=== PATIENT | male | born 1995 | race Caucasian/White ===

== ENCOUNTER 2018-09-30 17:57 | Emergency (ER) | payer MEDICAID ==
[~2018-09-30] VITALS: Ht 175.3 cm; Wt 68.2 kg
[2018-09-30 18:15] VITALS: BP 117/78; Ht 175.3 cm; Wt 68.2 kg
[2018-09-30] MEDS ORDERED: AMOXICILLIN500 M1 PO (18:29)
== END 2018-09-30 18:59 | disposition home or self-care (01) ==
LOC: D.ER 17:57
DX: J02.0 Streptococcal pharyngitis (principal)

== ENCOUNTER 2018-10-03 11:56 | Emergency (ER) | payer MEDICAID ==
[~2018-10-03] VITALS: Ht 175.3 cm; Wt 68.2 kg
[~2018-10-03 11:56] MED LIST: AMOXICILLIN500 M1 PO
[2018-10-03 11:59] VITALS: Ht 175.3 cm; Wt 68.2 kg
[2018-10-03] MEDS ORDERED: AUGMENTIN 875-11 TAB PO (12:55)
[2018-10-03] MEDS ORDERED: FLUTICASONE PRO16 GM NASAL (12:55)
[2018-10-03 13:06] VITALS: BP 118/72
== END 2018-10-03 13:07 | disposition home or self-care (01) ==
LOC: D.ER 11:56
DX: J01.90 Acute sinusitis, unspecified (principal)